=== PATIENT | female | born 1995 | race Caucasian/White ===

== ENCOUNTER 2018-02-22 01:24 | Observation (INO) ==
[2018-02-22] MEDS ORDERED: 0.9 % Sodium Chloride 1,000 ML IVC SCH (05:15)
[2018-02-22] MEDS ORDERED: Ketorolac 30 MG/ML VIAL IVP PRN (05:15)
[2018-02-22] MEDS ORDERED: Ondansetron 4 MG/2 ML VIAL IVP PRN (05:15)
[2018-02-22] MEDS ORDERED: Naloxone 0.4 MG/ML INJ IVP PRN (05:15)
[2018-02-22] MEDS ORDERED: OXYCODONE Oral CONC 10 MG/0.5 ML ORAL.SYG SL PRN (05:15)
--- NOTE | 2018-02-22 05:22 | Internal Med History&Physical ---
Date of Encounter: 02/22/18 Time of Encounter: 04:20 Internal Medicine - H&P: HPI Chief complaint: Right flank pain Admitted From: Home Plans for Post Hospital Care: Home History of present illness: Ms. Barron is a 22 year old female transferred from [facility] for right ureteral stone. Patient is in good health without significant past medical history. Patient had right-sided flank pain radiated down to right groin area for 6 days. Patient went to [facility] and CAT scan shows ureteral stone on the right side with size of 4mm. patient was prescribed pain medication and Flomax. She finished the 5 day Flomax treatment but the flank pain persisits. Patient has nausea and vomiting. Patient also complaining of dysuria, increased frequency and urgency. Patient denies fever or chills. In [facility] emergency room, CT abdominal has been done again. Urology was counsulted and the patient was transferred to our hospital for further management. Lab results from [facility]: CBC 9.0/13.2/40.9/379, BMP 140/4.1/102/28/18/ 0.71/85, UA RBC 20-50, Urine test negative. Past Med Surg Social Fam HX - Past Medical History Medical history: no medical history Psychiatric history: no psych history - Past Surgical History Surgical History: Additional surgical history: tonsillectomy - Social History Smoking Status: Never smoker Smokeless Tobacco Status: No Alcohol use: none Drug use: none - Family History Mother History Unknown: Yes Internal Medicine - H&P: Meds HYDROcodone/Acet 5/325 mg [[place] 5-325 mg] 1 tab PO Q6H PRN #5 tab 01/07/17 [Rx] Naproxen [Naprosyn] 500 mg PO BID 10 Days tablet 01/07/17 [Rx] 3 Allergy/AdvReac Type Severity Reaction Status Date / Time No Known Allergies Allergy Verified 01/06/17 23:43 All Systems PM: A 10-system review of systems was performed and is negative for pertinent findings except as documented above in the HPI. - Constitutional Vitals: Temp Pulse Resp BP Pulse Ox 97.7 F 84 16 116/76 98 02/22/18 03:55 02/22/18 03:55 02/22/18 03:55 02/22/18 03:55 02/22/18 03:55 General appearance: Present: A&O X 3, no acute distress, answers questions appropriately - Head Head exam: Present: atraumatic, normocephalic - Eye Eye exam: Present: PERRL, conjuntiva pink, sclera anicteric Pupils: Present: PERRL - Neck Neck exam general surgery: Present: supple, trachea midline. Absent: lymphadenopathy - Respiratory Respiratory exam: Present: CTAB. Absent: accessory muscle use, rales, rhonchi, wheezes - Cardiovascular Cardiovascular exam: Present: RRR, +S1, +S2. Absent: diastolic murmur, gallop, rubs, systolic murmur - GI/Abdominal GI/Abdominal exam: Present: normal bowel sounds, soft, no peritoneal signs. Absent: distended, tenderness - Extremities Exam Extremities exam: Present: warm, radial pulses palpable and symmetrical. Absent : calf tenderness, cyanotic, pedal edema - Neurological Exam Neurological exam: Present: CN II-XII intact, oriented X3, no focal deficits. Absent: pronater drift, facial droop, speech deficit - Skin Skin exam: Present: dry, intact - Assessment and plan (1) Ureteral stone Current Visit: Yes Status: Acute Assessment and plan: Patient has flank pain. CT shows ureteral stone. Failed outpatient treatment. - Place patient on nothing by mouth, IV fluid - Pain medication - Zofran for nausea - Urology consult (2) UTI (urinary tract infection) Current Visit: Yes Status: Acute Assessment and plan: Patient has dysuria and increased frequency/urgency. Patient has received Rocephin 1 g in [facility] emergency room. UA shows no significant sign of infection. Urine culture was sent by [facility] emergency room. Will continue Rocephin 1 g IV daily at this point until urine culture reports negative.. Qualifiers: Urinary tract infection type: acute cystitis Hematuria presence: without hematuria Qualified Code(s): N30.00 - Acute cystitis without hematuria (3) DVT prophylaxis Current Visit: Yes Status: Acute Assessment and plan: Patient is young and ambulating well. No anticoagulation placed. - Time Spent With Patient Total time spent is greater than 50% in coordination of care (as documented) at patient's floor/unit and/or counseling patient: 40 min Greater than 35 minutes
[2018-02-22 06:01] LABS: Basophils % 0.3 %; Eosinophils # 0.1 K/mcL (0.0-0.6); Eosinophils % 1.1 %; Hematocrit 39.3 % (35.3-44.9); Immature Granulocytes % 0.1 % (0-4); Lymphocytes # 2.5 K/mcL (0.6-4.6); Lymphocytes % 35.4 %; Mean Corpuscular HGB Conc 33.1 g/dL (31.6-35.5); Mean Corpuscular Hemoglobin 29.4 pg (28.0-33.3); Mean Corpuscular Volume 88.9 fL (83.0-100.0); Mean Platelet Volume 9.6 fL (9.4-12.4); Monocytes # 0.5 K/mcL (0.0-1.3); Monocytes % 7.2 %; Platelet Count 332 K/mcL (140-400); Red Blood Count 4.42 M/mcL (3.82-4.97); Red Cell Distribution Width 13.5 % (11.5-14.5); Segmented Neutrophils % 55.9 %
[2018-02-22 06:08] LABS: INR 1.1; Prothrombin Time 12.4 Seconds (9.4-12.1)
[2018-02-22 06:19] LABS: BUN/Creatinine Ratio 23 (6-26); Blood Urea Nitrogen 14 mg/dL (6-20); Calcium 9.4 mg/dL (8.6-10.3); Carbon Dioxide 26 mEq/L (23-29); Chloride 106 mEq/L (98-107); Glucose 96 mg/dL (70-105); Osmolality,Calculated 284 (280-300); Potassium 3.8 mEq/L (3.5-5.1); Sodium 137 mEq/L (136-145); eGFR For African Americans > 60 (> 60); eGFR For Non-African Americans > 60 (> 60)
--- NOTE | 2018-02-22 08:18 | Urology - Consult Note ---
Date of Encounter: 02/22/18 Time of Encounter: 08:16 - Assessment and Plan (1) Abdominal pain Current Visit: Yes Status: Acute Assessment and plan: 22-year-old woman with a history of abdominal pain. I do not see any residual renal stones and there does not appear to be any hydronephrosis. Delayed images on her CT scan seemed to show good drainage of the contrast. We will see how she does after the procedure today. If her abdominal pain persists, further workup with GI may be warranted. Qualifiers: Abdominal location: lower abdomen, unspecified Qualified Code(s): R10.30 - Lower abdominal pain, unspecified (2) Bladder stone Current Visit: Yes Status: Acute Assessment and plan: 22-year-old woman with abdominal pain and what appears to be a bladder stone on her CT scan. I do not have her previous CT scans. As she is having persistent abdominal pain and reports difficulty urinating the stone out, I recommend proceeding with a cystoscopy and removal of bladder stone. I also recommend a right retrograde pyelogram. If there is good drainage from the right kidney, then we will monitor. If I see any evidence for obstruction or stone, then she agrees to proceed with a right ureteroscopy, laser lithotripsy, and stent placement. She was informed of the risks of the procedure including but not limited to bleeding, infection, injury to other structures, need for further procedures, stent irritation, incomplete fragmentation, ureteral perforation, need for nephrostomy tube, need for open repair, risks unforeseen, and the risk of anesthesia. She is willing to proceed. Urine was negative from yesterday. Urology CN:HPI Consult date: 02/22/18 Reason for consult Urology: Other (bladder stone, abdominal pain) History of present illness: 22-year-old woman presents with a history of abdominal pain, nausea, emesis, and dysuria. She was seen at [facility] previously. Per her report she had evidence of a right ureteral stone. She went back to [facility] yesterday. A CT scan was repeated and it appears that the stone has migrated into the bladder. She still having severe discomfort. She was transferred to our hospital. The transfer was for an obstructing ureteral stone, but after I reviewed the CT, it seems more consistent with a bladder stone. She denies any fevers or chills. She is having some occasional dysuria, but says that has improved overnight. Past Med Surg Social Fam HX - Past Medical History Medical history: no medical history Psychiatric history: no psych history - Past Surgical History Surgical History: Additional surgical history: tonsillectomy - Social History Smoking Status: Never smoker Smokeless Tobacco Status: No Alcohol use: none Drug use: none - Family History Mother History Unknown: Yes Hx Family GI Disorders: Yes (Nephrolithiasis) Medications and Allergies HYDROcodone/Acet 5/325 mg [[place] 5-325 mg] 1 tab PO Q6H PRN #5 tab 01/07/17 [Rx] Naproxen [Naprosyn] 500 mg PO BID 10 Days tablet 01/07/17 [Rx] 3 Allergy/AdvReac Type Severity Reaction Status Date / Time No Known Allergies Allergy Verified 01/06/17 23:43 Review of Systems - Constitutional no chills, no fever(s) - EENT Nose, mouth and throat: no dizziness - Cardiovascular no chest pain - Respiratory no dyspnea - Gastrointestinal abdominal pain, nausea, vomiting - Genitourinary Genitourinary: flank pain, no hematuria - Musculoskeletal no back pain - Integumentary no erythema, no rash - Neurological no weakness - Psychiatric no suicidal ideation - Hematologic/Lymphatic no easy bleeding - Allergic/Immunologic no wheezing Exam Initial Vital Signs Temp Pulse Resp BP Pulse Ox 97.7 F 84 16 116/76 98 02/22/18 03:55 02/22/18 03:55 02/22/18 03:55 02/22/18 03:55 02/22/18 03:55 - General physical appearance Present: well developed, well nourished, no distress - Eyes Absent: icteric - ENT Present: normal nares - Neck Present: trachea midline - Respiratory Present: normal respiratory effort - Cardiovascular Cardiovascular exam IM: RRR - Abdomen Abdomen: Present: soft, non tender - Integumentary Present: no rash - Neurologic Present: normal coordination - Musculoskeletal Present: other (Grossly normal) Urology Results - Labs 02/22/18 05:35 02/22/18 05:35 Abnormal lab results PT 12.4 Seconds (9.4-12.1) H 02/22/18 05:35 Diabetes panel 02/22/18 Range/Units 05:35 Sodium 137 (136-145) mEq/L Potassium 3.8 (3.5-5.1) mEq/L Chloride 106 (98-107) mEq/L Carbon Dioxide 26 (23-29) mEq/L BUN 14 (6-20) mg/dL Creatinine 0.62 (0.60-1.20) mg/dL Glucose 96 (70-105) mg/dL Calcium 9.4 (8.6-10.3) mg/dL Calcium panel 02/22/18 Range/Units 05:35 Calcium 9.4 (8.6-10.3) mg/dL Pituitary panel 02/22/18 Range/Units 05:35 Sodium 137 (136-145) mEq/L Potassium 3.8 (3.5-5.1) mEq/L Chloride 106 (98-107) mEq/L Carbon Dioxide 26 (23-29) mEq/L BUN 14 (6-20) mg/dL Creatinine 0.62 (0.60-1.20) mg/dL Glucose 96 (70-105) mg/dL Calcium 9.4 (8.6-10.3) mg/dL Adrenal panel 02/22/18 Range/Units 05:35 Sodium 137 (136-145) mEq/L Potassium 3.8 (3.5-5.1) mEq/L Chloride 106 (98-107) mEq/L Carbon Dioxide 26 (23-29) mEq/L BUN 14 (6-20) mg/dL Creatinine 0.62 (0.60-1.20) mg/dL Glucose 96 (70-105) mg/dL Calcium 9.4 (8.6-10.3) mg/dL All other labs normal. - Imaging CT scan - abdomen: image reviewed CT scan - pelvis: image reviewed Consult Discharge Plan - Plan Referrals: NONE,PCP [Primary Care Provider] -
--- NOTE | 2018-02-22 09:23 | Event Note ---
Date of Encounter: 02/22/18 Time of Encounter: 09:21 I revisited with Jean Paul and she says she is feeling much better. We discussed canceling her surgery which I think is reasonable based upon the fact that I don 't see any obstructing ureteral stone. I discussed with the hospitalist and he will discharge her later today.
[2018-02-22 09:48] VITALS: BP 96/62
--- NOTE | 2018-02-22 10:29 | Discharge Summary ---
Orders not resulted at time of discharge: Pending orders 02/22/18 08:52 XR KUB [XR] Routine Date of Encounter: 02/22/18 Time of Encounter: 10:24 - Discharge Diagnosis (1) Bladder stone Priority: Primary Status: Acute (2) UTI (urinary tract infection) Priority: Secondary Status: Suspected Qualifiers: Urinary tract infection type: acute cystitis Hematuria presence: without hematuria Qualified Code(s): N30.00 - Acute cystitis without hematuria Hospital course: Ms. Barron is a 22 year old female. The patient was transferred from [facility] for a right ureteral stone. Her right-sided flank pain subsided shortly after admitting her to the regular floor. Imaging studies suggest that the stone is in the bladder. See notes from urology. The stone is small. It will likely leave her bladder stone. She will see the urologist in his office, if becomes symptomatic. We will treat her with antibiotic for possible urinary tract infection - Omnicef at 300 mg po bid; 5 days. She left the hospital less than 8 hours after the admission. For more info see history and physical prepared by the admitting physician. Discharge discussed with: patient, nurse - Time Spent with Patient Total time spent providing and/or coordinating discharge services: Less than 30 minutes - Discharge Medications Prescriptions: HYDROcodone/Acet 7.5/325 mg [[place] 7.5-325 mg] 1 tab PO Q6HR PRN 3 Days #12 tablet PRN Reason: Moderate Pain Cefdinir [Omnicef] 300 mg PO BID #10 capsule Home Medications: Cefdinir [Omnicef] 300 mg PO BID #10 capsule 02/22/18 [Rx] Gabapentin [Neurontin] 300 mg PO HS 02/22/18 [History] HYDROcodone/Acet 7.5/325 mg [[place] 7.5-325 mg] 1 tab PO Q6HR PRN 3 Days #12 tablet 02/22/18 [Rx] Allergies/Adverse Reactions: 3 Allergy/AdvReac Type Severity Reaction Status Date / Time No Known Allergies Allergy Verified 01/06/17 23:43 Date of admission: 02/22/18 03:38 Primary care physician: PCP NONE Consults: 02/22/18 04:30 Consult to Urology [CONS] Routine Consulting Provider: Urology Jessica Reason for Consult: Ureteral stone, Dr Huddleston was informed by hotbed lever operator. Call Completed: Yes Discharging clinician: Davis Huynh Anticipated date of discharge: 02/22/18 - Constitutional Vitals: Temp Pulse Resp BP Pulse Ox 97.9 F 84 15 96/62 97 02/22/18 09:47 02/22/18 09:47 02/22/18 09:47 02/22/18 09:47 02/22/18 09:47 General appearance: Present: A&O X 3, no acute distress, answers questions appropriately - Respiratory Respiratory exam: Present: CTAB. Absent: accessory muscle use, rales, rhonchi, wheezes - Cardiovascular Cardiovascular exam: Present: RRR, +S1, +S2. Absent: diastolic murmur, gallop, rubs, systolic murmur - GI/Abdominal GI/Abdominal exam: Present: normal bowel sounds, soft, no peritoneal signs. Absent: distended, tenderness - Patient Status Disposition: Home, Self-Care Condition: Good Functional capacity at discharge: independent ambulation Overall status at discharge: patient is back to baseline - Discharge Instructions Instructions: Kidney Stones (DC) Follow Up With: NONE,PCP [Primary Care Provider] - Additional Instructions: Follow-up with Dr. Huddleston next week.. - Diet and Activity Activity: resume usual activities as tolerated Diet: advance to your usual diet - VTE Reasons for not Prescribing Prophylaxis: Treatment not Indicated - Low risk for VTE Deep Vein Thrombosis/Pulmonary Embolism Present on Admission: No
[2018-02-23] MEDS ORDERED: cefTRIAXone 1,000 MG in Water for inj. (sterile) 20 ML 10 ML IVPB SCH (03:00)
== END 2018-02-22 11:00 | disposition home or self-care (01) ==
LOC: 3ANU → SUATTDRO 03:38
PROVIDERS: ADMIT Internal Medicine; ATTEND Internal Medicine